=== PATIENT | male | born 1975 | race African-American/Black ===

== ENCOUNTER 2021-08-27 19:42 | Emergency (ER) | payer SELFPAY ==
[~2021-08-27] VITALS: Ht 170.2 cm; Wt 75.0 kg
[2021-08-27 19:52] VITALS: TEMP 97.8
[2021-08-27] MEDS ORDERED: MITIGARE0.6 MG PO (20:12)
[2021-08-27 20:31] VITALS: BP 182/102; PULSE 112
== END 2021-08-27 20:31 | disposition home or self-care (01) ==
LOC: COL.ER 19:42
DX: M25.562 Pain in left knee (principal); M25.561 Pain in right knee; M25.572 Pain in left ankle and joints of left foot; M25.532 Pain in left wrist; I10 Essential (primary) hypertension